=== PATIENT | female | born 1995 | race Caucasian/White ===

== ENCOUNTER 2018-07-15 14:58 | Emergency (ER) | payer MEDICAID ==
[~2018-07-15] VITALS: Ht 167.6 cm; Wt 136.0 kg
[2018-07-15] MEDS ORDERED: ACETAMINOPHEN 325MG TABLET PO ONE (16:15)
[2018-07-15] MEDS ORDERED: ONDANSETRON 4MG ODT PO ONE (16:15)
[2018-07-15] MEDS: SODIUM CHLORIDE 0.9% 1,000 ML IV ONE ×2 (17:42→17:45)
[2018-07-15 19:51] LABS: BASOPHILS % 0.3 % (0.0-2.0); EOSINOPHILS % 0.3 % (0.0-5.0); HEMATOCRIT. 38.7 % (36.0-48.0); HEMOGLOBIN. 12.7 g/dL (12.0-16.0); LYMPHOCYTES % 22.1 % (20.0-50.0); MEAN CORPUSCULAR HEMOGLOBIN 26.4 pg (28.0-32.0); MEAN CORPUSCULAR VOLUME 80.4 fL (81.0-99.0); MEAN PLATELET VOLUME 8.7 fl (7.4-10.4); MONOCYTES % 5.2 % (2.0-8.0); NEUTROPHILS % 72.1 % (40.0-76.0); PLATELET 309 x1000/uL (130-400); RED BLOOD CELL COUNT 4.81 mill/uL (4.2-5.4); RED CELL DISTRIBUTION WIDTH 13.9 % (11.6-14.6)
[2018-07-15 19:52] LABS: CHLORIDE 103 mEq/L (98-107)
[2018-07-15 19:54] LABS: INR 1.1; PROTHROMBIN TIME 10.7 sec (9.1-11.1)
[2018-07-15 20:00] LABS: CREATINE KINASE 75 IU/L (26-192)
[2018-07-15 20:03] LABS: CREATINE KINASE MB FRACTION < 1.0 ng/mL (0.5-3.6); HCG SCREEN NEGATIVE
[2018-07-15] MEDS ORDERED: IOHEXOL-300 100 ML BOTTLE ONE (22:04)
[2018-07-15 22:34] VITALS: BP 118/63
== END 2018-07-15 23:05 | disposition home or self-care (01) ==
LOC: ER 14:58
DX: S20.212A Contusion of left front wall of thorax, initial encounter (principal); R11.0 Nausea; V49.59XA Passenger injured in collision with other motor vehicles in traffic accident, initial encounter; Y93.89 Activity, other specified; Y92.89 Other specified places as the place of occurrence of the external cause; Y99.8 Other external cause status
CPT/HCPCS: 36415; 71045; 71260; 80053; 82550; 82553; 84484; 84703; 85025; 85610; 93005; 99284; J7030; Q0162; Q9967